=== PATIENT | female | born 1955 | race Caucasian/White ===

== ENCOUNTER 2020-04-12 17:59 | Inpatient (IN) | payer OTHER, SELFPAY ==
[~2020-04-12] VITALS: Ht 172.7 cm; Wt 64.6 kg
[2020-04-12 18:00] VITALS: BP_SYST 105
[2020-04-12] MEDS ORDERED: DILTIAZEM HCL 25 MG/5 ML VIAL ONE (18:38)
[2020-04-12] MEDS ORDERED: DILTIAZEM HCL 25 MG/5 ML VIAL IVP ONE ×2 (19:15→20:00)
[2020-04-12 19:28] LABS: BASOPHILS # (AUTO) 0.1 K/uL (0.0-0.2); BASOPHILS % (AUTO) 1.1 % (0.0-2.0); EOSINOPHILS # (AUTO) 0.1 K/uL (0.0-0.4); EOSINOPHILS % (AUTO) 2.7 % (0.0-4.0); HEMOGLOBIN 13.5 g/dL (12.0-16.0); LYMPHOCYTES # (AUTO) 1.4 K/uL (1.0-5.5); LYMPHOCYTES % (AUTO) 28.9 % (20.5-51.5); MEAN CORPUSCULAR HEMOGLOBIN 32 pg (27-31); MEAN CORPUSCULAR HGB CONC 34 % (32-36); MEAN CORPUSCULAR VOLUME 96 fL (79.0-98.0); MONOCYTES # (AUTO) 0.4 K/uL (0.0-1.0); MONOCYTES % (AUTO) 9.3 % (1.7-9.3); NEUTROPHILS # (AUTO) 2.7 K/uL (1.8-7.7); PLATELET COUNT (AUTO) 207 K/uL (130-430); RED BLOOD CELL COUNT(AUTO) 4.18 MIL/uL (4.2-6.2); RED CELL DISTRIBUTION WIDTH 13.5 % (9.0-15.0); WHITE BLOOD COUNT (AUTO) 4.7 K/uL (4.8-10.8)
[2020-04-12 19:30] LABS: CALCIUM 9.4 mg/dL (8.4-11.0); CREATININE 1.02 mg/dL (0.55-1.30); POTASSIUM 4.2 mmol/L (3.5-5.1)
[2020-04-12] MEDS ORDERED: NACL 0.9% 500 ML IV ONE (19:30)
[2020-04-12] MEDS ORDERED: NACL 0.9% 1,000 ML IV ONE (19:30)
[2020-04-12 19:36] LABS: ALBUMIN 3.9 g/dL (3.4-4.8); TOTAL BILIRUBIN 0.4 mg/dL (0.0-1.0)
[2020-04-12] MEDS ORDERED: AMIT75TA2 PO (20:35)
[2020-04-12] MEDS ORDERED: METO25TA3 PO (20:35)
[2020-04-12] MEDS ORDERED: DILT30TA36 PO (20:35)
[2020-04-12] MEDS ORDERED: GABA-533 PO (20:35)
[2020-04-12] MEDS ORDERED: ALBUTEROL SULFATE 0.083% 2.5 MG/3 ML VIAL.NEB INH PRN (20:45)
[2020-04-12] MEDS ORDERED: MORPHINE 2 MG/ML INJ. SYRINGE IVP PRN (20:45)
[2020-04-12] MEDS ORDERED: ACETAMINOPHEN 325 MG TABLET PO PRN (20:45)
[2020-04-12] MEDS: NACL 0.9% 1,000 ML IV SCH (21:10)
[2020-04-12 22:18] VITALS: BP_SYST 106
[2020-04-12] MEDS ORDERED: METOPROLOL SUCCINATE 25 MG TAB.SR.24H (TOPROL XL) PO ONE (23:15)
[2020-04-12] MEDS: AMITRIPTYLINE HCL 25 MG TABLET (ELAVIL) PO SCH (23:18)
[2020-04-12] MEDS: GABAPENTIN 400 MG CAPSULE PO SCH (23:19)
[2020-04-12] MEDS: METOPROLOL SUCCINATE 25 MG TAB.SR.24H (TOPROL XL) PO SCH (23:21)
[2020-04-13 01:10] VITALS: BP_SYST 106
[2020-04-13 05:43] VITALS: BP_SYST 106
[2020-04-13] MEDS: NACL 0.9% 1,000 ML IV SCH ×2 (06:04→16:28)
[2020-04-13 06:16] LABS: BASOPHILS % (AUTO) 0.9 % (0.0-2.0); EOSINOPHILS # (AUTO) 0.1 K/uL (0.0-0.4); EOSINOPHILS % (AUTO) 2.7 % (0.0-4.0); HEMATOCRIT 37.3 % (36-48); HEMOGLOBIN 12.5 g/dL (12.0-16.0); LYMPHOCYTES # (AUTO) 1.5 K/uL (1.0-5.5); LYMPHOCYTES % (AUTO) 29.4 % (20.5-51.5); MEAN CORPUSCULAR HEMOGLOBIN 32 pg (27-31); MEAN CORPUSCULAR HGB CONC 34 % (32-36); MEAN CORPUSCULAR VOLUME 96 fL (79.0-98.0); MONOCYTES # (AUTO) 0.4 K/uL (0.0-1.0); MONOCYTES % (AUTO) 7.4 % (1.7-9.3); NEUTROPHILS % (AUTO) 59.6 % (40.0-70.0); PLATELET COUNT (AUTO) 189 K/uL (130-430); RED BLOOD CELL COUNT(AUTO) 3.87 MIL/uL (4.2-6.2); RED CELL DISTRIBUTION WIDTH 13.6 % (9.0-15.0)
[2020-04-13 08:15] VITALS: BP_SYST 111
[2020-04-13 08:39] LABS: ALANINE AMINOTRANSFERASE 20 U/L (12-78); ALBUMIN 3.2 g/dL (3.4-4.8); ANION GAP 5 (5-15); ASPARTATE AMINOTRANSFERASE 14 U/L (10-37); CALCIUM 8.8 mg/dL (8.4-11.0); CHLORIDE 110 mmol/L (98-107); GLUCOSE 83 mg/dL (70-99); POTASSIUM 4.4 mmol/L (3.5-5.1); SODIUM SERUM 145 mmol/L (136-145); TOTAL BILIRUBIN 0.7 mg/dL (0.0-1.0); UREA NITROGEN, BLOOD 15 mg/dL (8-21)
[2020-04-13 08:41] LABS: GFR AFRICAN AMERICAN 81 mL/min (>90)
[2020-04-13] MEDS ORDERED: DILTIAZEM HCL 30 MG TABLET ONE (08:55)
[2020-04-13] MEDS: METOPROLOL SUCCINATE 25 MG TAB.SR.24H (TOPROL XL) PO SCH ×2 (08:57→21:22)
[2020-04-13] MEDS ORDERED: GABAPENTIN 400 MG CAPSULE PO SCH (09:00)
[2020-04-13] MEDS ORDERED: ENOXAPARIN SODIUM 40 MG/0.4 ML SYRINGE SUBCUT SCH (09:00)
[2020-04-13] MEDS ORDERED: DILTIAZEM HCL 30 MG TABLET PO SCH (09:00)
[2020-04-13 13:10] VITALS: BP_SYST 112
[2020-04-13] MEDS ORDERED: DIGOXIN 0.5 MG/2 ML AMP IVP ONE ×2 (14:15→20:00)
[2020-04-13 16:14] VITALS: BP_SYST 116
[2020-04-13] MEDS ORDERED: DILTIAZEM HCL 25 MG/5 ML VIAL IVP PRN (16:45)
[2020-04-13] MEDS ORDERED: DILTIAZEM HCL 25 MG/5 ML VIAL ONE (17:53)
[2020-04-13 20:00] VITALS: BP_SYST 115
[2020-04-13] MEDS ORDERED: AMITRIPTYLINE HCL 25 MG TABLET (ELAVIL) PO SCH (21:00)
[2020-04-13] MEDS: AMITRIPTYLINE HCL 25 MG TABLET (ELAVIL) PO SCH (21:21)
[2020-04-13] MEDS: GABAPENTIN 400 MG CAPSULE PO SCH (21:22)
[2020-04-13] MEDS: APIXABAN 2.5 MG TABLET PO SCH (21:24)
[2020-04-14 00:06] VITALS: BP_SYST 122
[2020-04-14] MEDS: NACL 0.9% 1,000 ML IV SCH (02:56)
[2020-04-14 07:55] VITALS: BP_SYST 114
[2020-04-14] MEDS ORDERED: DIGOXIN 0.125 MG TABLET PO SCH (09:00)
[2020-04-14] MEDS ORDERED: METOPROLOL SUCCINATE 25 MG TAB.SR.24H (TOPROL XL) PO SCH (09:00)
[2020-04-14] MEDS: METOPROLOL SUCCINATE 25 MG TAB.SR.24H (TOPROL XL) PO SCH (09:23)
[2020-04-14] MEDS: APIXABAN 2.5 MG TABLET PO SCH (09:24)
[2020-04-14] MEDS ORDERED: METO-540 PO (10:45)
[2020-04-14] MEDS ORDERED: APIX2.5T PO (10:45)
[2020-04-14] MEDS ORDERED: ELA25 PO (10:45)
[2020-04-14] MEDS ORDERED: GABA-533 PO (10:45)
[2020-04-14] MEDS ORDERED: LEVOTHYROXINE SODIUM 0.05 MG TABLET PO ONE (10:45)
[2020-04-14] MEDS ORDERED: DIGO125T PO (10:45)
[2020-04-14] MEDS ORDERED: SYN50 PO (10:45)
[2020-04-14 11:30] VITALS: BP_SYST 114
[2020-04-14 12:39] VITALS: BP_SYST 117
[2020-04-15] MEDS ORDERED: LEVOTHYROXINE SODIUM 0.05 MG TABLET PO SCH (07:00)
== END 2020-04-14 13:40 | disposition home or self-care (01) | DRG 310 ==
LOC: SED 17:59 → STU 20:37 → INTOOBSV 20:37 → OBSVTOIN 20:37 → STU 21:55 → OBSVTOIN 04-13 10:56 → UNDODISIN 04-14 13:40
PROVIDERS: ADMIT Internal Medicine Hospice and Palliative Medicine; ATTEND Internal Medicine Hospice and Palliative Medicine
DX: I48.92 Unspecified atrial flutter (principal); F32.9 Major depressive disorder, single episode, unspecified; G62.9 Polyneuropathy, unspecified; I71.2 Thoracic aortic aneurysm, without rupture; E88.09 Other disorders of plasma-protein metabolism, not elsewhere classified; E03.9 Hypothyroidism, unspecified; I11.9 Hypertensive heart disease without heart failure; Z68.21 Body mass index [BMI] 21.0-21.9, adult; Z20.822 Contact with and (suspected) exposure to COVID-19
CPT/HCPCS: 36415; 71045; 80053; 83880; 84443-TC; 84484; 85025; 85730-TC; 93005; 93306; 96374; 96375; 99291; G0378; J1160; J1650; J3490; J7030; J7040